=== PATIENT | female | born 1995 | race Caucasian/White ===

== ENCOUNTER 2016-03-23 14:57 | Emergency (ER) | payer OTHER ==
[~2016-03-23] VITALS: Ht 165.1 cm; Wt 115.7 kg
[~2016-03-23 14:57] MED LIST: ADDERALL XR25 MG PO; AMOXICILLIN500 M2 PO; AMOXICILLIN500 M3 PO; AMOXICILLIN500 MG PO; ATOXIMETIN-B1 CAP PO; CLINDAMYCIN HC300 MG PO; DICLEGIS DR 101 EACH PO; DOCUSATE SODIU100 MG PO; FE-TABS325 MG PO; FLEXERIL10 MG PO; HYDROCODONE BIT1 T11 PO; IBUPROFEN600 MG PO; IMPLANON68 MG ID; LORTAB 180 ML180 ML PO; MOTRIN 600 MG E4 TAB PO; MOTRIN800 MG PO; Motrin,Rufen800 MG PO; NAPROSYN500 MG PO; NKHM; PEN-VEE K500 MG PO; PENICILLIN VK500 MG PO; PERCOCET 325 MG1 TA2 PO; PRENATA CHEWAB1 EACH PO; PROAIR HFA0.09 MG/AC INH; Percocet 325 MG1 TAB PO; TAB-A-VITE W/IR1 TAB PO; TRAMADOL HCL50 MG PO; ULTRAM50 MG PO; ZOFRAN ODT4 MG SL; ZOFRAN4 MG PO; ZYRTEC10 MG PO; ZYRTEC5 MG PO; [UNRECOGNIZED DRUG - OTHER] PO
[2016-03-23 15:26] LABS: BASO # 0.1 10*3/uL (0.0-0.1); BASO % 0.4 % (0.0-1.0); EOS # 0.1 10*3/uL (0.0-0.4); EOS % 1.1 % (1.0-4.0); HEMATOCRIT 41.9 % (37.0-47.0); HEMOGLOBIN 13.5 g/dl (12.0-16.0); LYMPH # 1.4 10*3/uL (1.3-4.4); LYMPH % 12.9 % (27.0-41.0); MEAN CELL VOLUME 84.8 fl (81.0-99.0); MEAN CORPUSCULAR HGB 27.3 pg (27.0-31.0); MEAN CORPUSCULAR HGB CONC 32.2 g/dl (33.0-37.0); MEAN PLATELET VOLUME 9.5 fl (9.6-12.3); MONO # 0.8 10*3/uL (0.1-1.0); MONO % 7.4 % (3.0-9.0); NEUT # 8.7 10*3/uL (2.3-7.9); NEUT % 77.8 % (47.0-73.0); PLATELET COUNT AUTOMATED 360 10*3/uL (130-400); RED BLOOD COUNT 4.94 10*6/uL (4.10-5.10); RED CELL DISTRI WIDTH 12.7 % (0-14.5); WHITE BLOOD COUNT 11.2 10*3/uL (4.8-10.8)
[2016-03-23 15:51] LABS: ALBUMIN 3.7 gm/dl (3.1-4.5); ALKALINE PHOSPHATASE 73 U/L (45-117); BILIRUBIN, TOTAL 0.2 mg/dl (0.2-1.0); BUN 9 mg/dl (7-24); CARBON DIOXIDE 26 mmol/L (21-32); CHLORIDE 106 mmol/L (98-107); EST GLOM FILT AFRICAN AMERICAN > 60 ml/min; GLUCOSE 73 mg/dL (65-99); POTASSIUM 4.4 mmol/L (3.5-5.1); SGOT/AST 26 IU/L (3-35); SGPT/ALT 44 U/L (12-78); SODIUM 142 mmol/L (136-145); TOTAL PROTEIN 7.9 gm/dL (6.4-8.2)
[2016-03-23 15:58] LABS: BILIRUBIN NEGATIVE (NEGATIVE); BLOOD NEGATIVE (NEGATIVE); CLARITY SL CLOUDY (CLEAR); COLOR YELLOW (YELLOW); GLUCOSE NEGATIVE (NEGATIVE); KETONE NEGATIVE (NEGATIVE); LEUKO ESTERASE TRACE (NEGATIVE); NITRITE NEGATIVE (NEGATIVE); PROTEIN NEGATIVE (NEGATIVE); SPECIFIC GRAVITY 1.015 (1.005-1.030); UROBILINOGEN 0.2 E.U./dl (0.2-1.0)
[2016-03-23 16:10] LABS: BACTERIA 1+; URINE REFLEX COMMENT YES (NO)
[2016-03-23] MEDS ORDERED: ZOFRAN4 MG PO (16:12)
== END 2016-03-23 16:19 | disposition home or self-care (01) ==
LOC: ED 14:57
PROVIDERS: Nurse Practitioner Family
DX: K52.9 Noninfective gastroenteritis and colitis, unspecified (principal); R03.0 Elevated blood-pressure reading, without diagnosis of hypertension; G43.909 Migraine, unspecified, not intractable, without status migrainosus

== ENCOUNTER 2016-07-12 12:06 | Emergency (ER) | payer OTHER ==
[~2016-07-12] VITALS: Ht 165.1 cm; Wt 117.0 kg
[2016-07-12] MEDS ORDERED: LIPITOR10 MG PO (12:26)
[2016-07-12] MEDS ORDERED: Peridex 473 ML473 ML PO (12:43)
[2016-07-12] MEDS ORDERED: LIDOCAINE VISC100 ML MM (12:43)
[2016-07-12] MEDS ORDERED: PENICILLIN-VK500 MG PO (12:43)
[2016-07-12] MEDS ORDERED: Motrin,Rufen800 MG PO (12:43)
== END 2016-07-12 12:50 | disposition home or self-care (01) ==
LOC: ED 12:06
DX: K08.89 Other specified disorders of teeth and supporting structures (principal); Z90.89 Acquired absence of other organs; Z79.899 Other long term (current) drug therapy; Z91.018 Allergy to other foods

== ENCOUNTER 2016-07-22 18:20 | Emergency (ER) | payer OTHER ==
[~2016-07-22] VITALS: Ht 165.1 cm; Wt 117.9 kg
[~2016-07-22 18:20] MED LIST changes: +LIDOCAINE VISC100 ML MM; +LIPITOR10 MG PO; +PENICILLIN-VK500 MG PO; +Peridex 473 ML473 ML PO
[2016-07-22] MEDS ORDERED: LORAZEPAM0.5 MG PO (18:25)
[2016-07-22] MEDS ORDERED: NAPROSYN500 MG PO (18:34)
[2016-07-22] MEDS ORDERED: CIPRO500 MG PO (18:34)
== END 2016-07-22 18:39 | disposition home or self-care (01) ==
LOC: ED 18:20
DX: S91.332A Puncture wound without foreign body, left foot, initial encounter (principal); G43.909 Migraine, unspecified, not intractable, without status migrainosus; Z79.899 Other long term (current) drug therapy; Z90.49 Acquired absence of other specified parts of digestive tract; Z91.018 Allergy to other foods; W22.8XXA Striking against or struck by other objects, initial encounter; Y93.89 Activity, other specified; Y92.89 Other specified places as the place of occurrence of the external cause; Y99.9 Unspecified external cause status

== ENCOUNTER 2016-07-24 09:00 | Emergency (ER) | payer OTHER ==
[~2016-07-24] VITALS: Ht 165.1 cm; Wt 119.3 kg
[~2016-07-24 09:00] MED LIST changes: +CIPRO500 MG PO; +LORAZEPAM0.5 MG PO
== END 2016-07-24 10:06 | disposition home or self-care (01) ==
LOC: ED 09:00
DX: S91.332A Puncture wound without foreign body, left foot, initial encounter (principal); G43.909 Migraine, unspecified, not intractable, without status migrainosus; Z90.49 Acquired absence of other specified parts of digestive tract; Z79.899 Other long term (current) drug therapy; Z91.018 Allergy to other foods; W22.8XXA Striking against or struck by other objects, initial encounter; Y93.89 Activity, other specified; Y92.89 Other specified places as the place of occurrence of the external cause; Y99.9 Unspecified external cause status

== ENCOUNTER → 2016-08-25 | Outpatient (CLI) | payer OTHER ==
[2016-08-25 11:13] LABS: HEMOGLOBIN A1c 5.5 % (4.8-5.6)
[2016-08-25 11:24] LABS: THYROXINE (T4) TOTAL 9.3 ug/dl (4.8-13.9)
[2016-08-25 11:30] LABS: THYROID STIM HORMONE (HS) 0.965 uIU/ml (0.358-4.75)
[2016-08-25 13:27] LABS: FREE THYROXIN INDEX/T7 3.1 (1.5-5.4)
== END | disposition home or self-care (01) ==
LOC: LAB 10:27
PROVIDERS: Pediatrics
DX: R63.5 Abnormal weight gain (principal)

== ENCOUNTER 2016-09-29 18:56 | Emergency (ER) | payer OTHER ==
[~2016-09-29] VITALS: Ht 165.1 cm; Wt 108.4 kg
[2016-09-29 19:31] LABS: BASO % 0.5 % (0.0-1.0); EOS # 0.1 10*3/uL (0.0-0.4); EOS % 0.8 % (1.0-4.0); HEMATOCRIT 41.1 % (37.0-47.0); HEMOGLOBIN 13.4 g/dl (12.0-16.0); LYMPH # 1.4 10*3/uL (1.3-4.4); LYMPH % 15.9 % (27.0-41.0); MEAN CELL VOLUME 81.7 fl (81.0-99.0); MEAN CORPUSCULAR HGB 26.6 pg (27.0-31.0); MEAN CORPUSCULAR HGB CONC 32.6 g/dl (33.0-37.0); MEAN PLATELET VOLUME 9.5 fl (9.6-12.3); MONO # 0.7 10*3/uL (0.1-1.0); MONO % 7.8 % (3.0-9.0); NEUT # 6.3 10*3/uL (2.3-7.9); NEUT % 74.8 % (47.0-73.0); PLATELET COUNT AUTOMATED 309 10*3/uL (130-400); RED BLOOD COUNT 5.03 10*6/uL (4.10-5.10); RED CELL DISTRI WIDTH 13.4 % (0-14.5); WHITE BLOOD COUNT 8.5 10*3/uL (4.8-10.8)
[2016-09-29 19:34] LABS: BILIRUBIN NEGATIVE (NEGATIVE); BLOOD 2+ (NEGATIVE); CLARITY SL CLOUDY (CLEAR); COLOR YELLOW (YELLOW); GLUCOSE NEGATIVE (NEGATIVE); KETONE NEGATIVE (NEGATIVE); LEUKO ESTERASE NEGATIVE (NEGATIVE); NITRITE NEGATIVE (NEGATIVE); PH 5.5 (5.0-9.0); PROTEIN TRACE (NEGATIVE); SPECIFIC GRAVITY >= 1.030 (1.005-1.030); UROBILINOGEN 0.2 E.U./dl (0.2-1.0)
[2016-09-29 19:39] LABS: BACTERIA 4+; URINE REFLEX COMMENT YES (NO)
[2016-09-29 19:47] LABS: ALBUMIN 3.7 gm/dl (3.1-4.5); ALKALINE PHOSPHATASE 75 U/L (45-117); BILIRUBIN, TOTAL 0.3 mg/dl (0.2-1.0); BUN 9 mg/dl (7-24); CARBON DIOXIDE 23 mmol/L (21-32); CHLORIDE 104 mmol/L (98-107); EST GLOM FILT AFRICAN AMERICAN > 60 ml/min; GLUCOSE 93 mg/dL (65-99); POTASSIUM 3.9 mmol/L (3.5-5.1); SGOT/AST 30 IU/L (3-35); SGPT/ALT 30 U/L (12-78); SODIUM 138 mmol/L (136-145); TOTAL PROTEIN 7.9 gm/dL (6.4-8.2)
[2016-09-29] MEDS ORDERED: ZOFRAN ODT4 MG SL (20:04)
== END 2016-09-29 20:33 | disposition home or self-care (01) ==
LOC: ED 18:56
PROVIDERS: Nurse Practitioner Family
DX: A08.4 Viral intestinal infection, unspecified (principal); G43.909 Migraine, unspecified, not intractable, without status migrainosus; Z91.018 Allergy to other foods; Z79.899 Other long term (current) drug therapy

== ENCOUNTER 2016-10-28 16:07 | Emergency (ER) | payer OTHER ==
[~2016-10-28] VITALS: Ht 165.1 cm; Wt 114.8 kg
[2016-10-28] MEDS ORDERED: PREDNISONE10 MG PO (16:18)
== END 2016-10-28 16:24 | disposition home or self-care (01) ==
LOC: ED 16:07
DX: L30.9 Dermatitis, unspecified (principal); G43.909 Migraine, unspecified, not intractable, without status migrainosus; Z90.89 Acquired absence of other organs; Z79.899 Other long term (current) drug therapy; Z91.018 Allergy to other foods

== ENCOUNTER → 2017-02-07 | Outpatient (CLI) | payer MEDICAID ==
[~2017-02-07] MED LIST changes: +PREDNISONE10 MG PO
== END | disposition home or self-care (01) ==
LOC: LAB 11:39
DX: N91.2 Amenorrhea, unspecified (principal)

== ENCOUNTER 2017-04-15 11:28 | Emergency (ER) | payer OTHER ==
[2017-04-15] MEDS ORDERED: DAILY VITE WIT1 EACH PO (11:39)
[2017-04-15] MEDS ORDERED: IBU800 M1 PO (11:44)
[2017-04-15] MEDS ORDERED: AMOXICILLIN500 M3 PO (12:16)
[2017-04-15] MEDS ORDERED: NORCO 5-325 TA1 EACH PO (12:16)
[2017-04-15] MEDS ORDERED: IBUPROFEN600 MG PO (12:16)
== END 2017-04-15 13:09 | disposition home or self-care (01) ==
LOC: ED 11:28
DX: K08.89 Other specified disorders of teeth and supporting structures (principal); Z90.89 Acquired absence of other organs; Z79.899 Other long term (current) drug therapy; Z91.018 Allergy to other foods

== ENCOUNTER 2017-04-21 22:08 | Emergency (ER) | payer OTHER ==
[~2017-04-21] VITALS: Ht 165.1 cm; Wt 114.3 kg
[~2017-04-21 22:08] MED LIST changes: +DAILY VITE WIT1 EACH PO; +IBU800 M1 PO; +NORCO 5-325 TA1 EACH PO
[2017-04-21 22:56] LABS: BILIRUBIN 1+ (NEGATIVE); BLOOD 1+ (NEGATIVE); CLARITY SL CLOUDY (CLEAR); GLUCOSE NEGATIVE (NEGATIVE); KETONE TRACE (NEGATIVE); LEUKO ESTERASE NEGATIVE (NEGATIVE); NITRITE NEGATIVE (NEGATIVE); PH 5.5 (5.0-9.0); SPECIFIC GRAVITY >= 1.030 (1.005-1.030); UROBILINOGEN 0.2 E.U./dl (0.2-1.0)
[2017-04-21 22:56] LABS: BASO % 0.6 % (0.0-1.0); EOS # 0.3 10*3/uL (0.0-0.4); EOS % 3.9 % (1.0-4.0); HEMATOCRIT 36.7 % (37.0-47.0); HEMOGLOBIN 12.1 g/dl (12.0-16.0); LYMPH # 1.6 10*3/uL (1.3-4.4); LYMPH % 22.7 % (27.0-41.0); MEAN CELL VOLUME 83.6 fl (81.0-99.0); MEAN CORPUSCULAR HGB 27.6 pg (27.0-31.0); MEAN PLATELET VOLUME 9.7 fl (9.6-12.3); MONO # 0.7 10*3/uL (0.1-1.0); MONO % 9.5 % (3.0-9.0); NEUT # 4.6 10*3/uL (2.3-7.9); PLATELET COUNT AUTOMATED 304 10*3/uL (130-400); RED BLOOD COUNT 4.39 10*6/uL (4.10-5.10); WHITE BLOOD COUNT 7.2 10*3/uL (4.8-10.8)
[2017-04-21 23:04] LABS: BACTERIA 3+; CALCIUM OXALATE CRYSTALS 2+; COLOR YELLOW (YELLOW); EPITHELIAL CELLS 25-30
[2017-04-21 23:11] LABS: ALBUMIN 3.6 gm/dl (3.1-4.5); ALKALINE PHOSPHATASE 69 U/L (45-117); BUN 13 mg/dl (7-24); CHLORIDE 107 mmol/L (98-107); CREATININE 0.74 mg/dL (0.55-1.02); LIPASE 135 U/L (73-393); POTASSIUM 3.7 mmol/L (3.5-5.1); SGOT/AST 19 IU/L (3-35); SGPT/ALT 27 U/L (12-78); SODIUM 140 mmol/L (136-145); TOTAL PROTEIN 7.2 gm/dL (6.4-8.2)
[2017-04-21] MEDS ORDERED: ZANTAC 150150 MG PO (23:35)
== END 2017-04-21 23:45 | disposition home or self-care (01) ==
LOC: ED 22:08
PROVIDERS: Nurse Practitioner Family
DX: K21.9 Gastro-esophageal reflux disease without esophagitis (principal); Z90.49 Acquired absence of other specified parts of digestive tract; Z98.890 Other specified postprocedural states; Z79.899 Other long term (current) drug therapy; Z91.018 Allergy to other foods

== ENCOUNTER 2017-05-13 12:29 | Emergency (ER) | payer OTHER ==
[~2017-05-13] VITALS: Ht 165.1 cm; Wt 95.3 kg
[~2017-05-13 12:29] MED LIST changes: +ZANTAC 150150 MG PO
[2017-05-13] MEDS ORDERED: CLINDAMYCIN HC300 MG PO (12:55)
[2017-05-13] MEDS ORDERED: IBU800 MG PO (12:56)
== END 2017-05-13 13:15 | disposition home or self-care (01) ==
LOC: ED 12:29
DX: K08.89 Other specified disorders of teeth and supporting structures (principal); Z91.018 Allergy to other foods; Z79.899 Other long term (current) drug therapy; Z90.89 Acquired absence of other organs

== ENCOUNTER 2017-06-08 13:40 | Emergency (ER) | payer OTHER ==
[~2017-06-08] VITALS: Ht 165.1 cm; Wt 114.8 kg
[~2017-06-08 13:40] MED LIST changes: +IBU800 MG PO
[2017-06-08] MEDS ORDERED: OMNICEF300 MG PO (14:22)
== END 2017-06-08 14:25 | disposition home or self-care (01) ==
LOC: ED 13:40
DX: J32.9 Chronic sinusitis, unspecified (principal); J02.9 Acute pharyngitis, unspecified; K21.9 Gastro-esophageal reflux disease without esophagitis; Z91.018 Allergy to other foods

== ENCOUNTER → 2017-09-07 | Outpatient (CLI) | payer OTHER ==
[~2017-09-07] MED LIST changes: +CHLORZOXAZONE500 M2 PO; +OMNICEF300 MG PO
[2017-09-07 12:40] LABS: CHOLESTEROL 206 mg/dL (<200); HDL CHOLESTEROL 43 mg/dl (40-60); LDL CHOLESTEROL 129 mg/dL (9-159); T3 UPTAKE 32 % (31-39); THYROXINE (T4) TOTAL 9.8 ug/dl (4.8-13.9); TRIGLYCERIDES 168 mg/dl (<150); VLDL CHOLESTEROL 34 mg/dL (6-40)
[2017-09-07 12:46] LABS: BETA-HCG, QUANT < 1.0 mIU/mL (1-3)
== END | disposition home or self-care (01) ==
LOC: LAB 12:02
PROVIDERS: Pediatrics
DX: N92.6 Irregular menstruation, unspecified (principal); R63.5 Abnormal weight gain; Z79.899 Other long term (current) drug therapy

== ENCOUNTER 2017-09-21 11:39 | Emergency (ER) | payer OTHER ==
[~2017-09-21] VITALS: Ht 165.1 cm; Wt 104.3 kg
[~2017-09-21 11:39] MED LIST changes: -CHLORZOXAZONE500 M2 PO
[2017-09-21] MEDS ORDERED: NAPROSYN500 MG PO (12:02)
[2017-09-21] MEDS ORDERED: CHLORZOXAZONE500 M2 PO (12:02)
== END 2017-09-21 13:08 | disposition home or self-care (01) ==
LOC: ED 11:39
DX: S09.90XA Unspecified injury of head, initial encounter (principal); M54.5 Low back pain; K21.9 Gastro-esophageal reflux disease without esophagitis; G43.909 Migraine, unspecified, not intractable, without status migrainosus; Z91.018 Allergy to other foods; Z79.899 Other long term (current) drug therapy; V89.2XXA Person injured in unspecified motor-vehicle accident, traffic, initial encounter; Y93.89 Activity, other specified; Y92.413 State road as the place of occurrence of the external cause; Y99.8 Other external cause status

== ENCOUNTER 2017-12-14 07:36 | Emergency (ER) | payer OTHER ==
[~2017-12-14] VITALS: Wt 101.2 kg
[~2017-12-14 07:36] MED LIST changes: +CHLORZOXAZONE500 M2 PO
[2017-12-14 08:00] LABS: BASO % 0.4 % (0.0-1.0); EOS # 0.5 10*3/uL (0.0-0.4); EOS % 7.4 % (1.0-4.0); HEMOGLOBIN 12.9 g/dl (12.0-16.0); LYMPH # 1.8 10*3/uL (1.3-4.4); LYMPH % 25.7 % (27.0-41.0); MEAN CELL VOLUME 84.1 fl (81.0-99.0); MEAN CORPUSCULAR HGB 28.5 pg (27.0-31.0); MEAN CORPUSCULAR HGB CONC 33.9 g/dl (33.0-37.0); MEAN PLATELET VOLUME 9.8 fl (9.6-12.3); MONO # 0.7 10*3/uL (0.1-1.0); MONO % 10.1 % (3.0-9.0); NEUT # 3.9 10*3/uL (2.3-7.9); NEUT % 56.1 % (47.0-73.0); PLATELET COUNT AUTOMATED 285 10*3/uL (130-400); RED BLOOD COUNT 4.52 10*6/uL (4.10-5.10); RED CELL DISTRI WIDTH 12.9 % (0-14.5); WHITE BLOOD COUNT 6.9 10*3/uL (4.8-10.8)
[2017-12-14 08:13] LABS: ALBUMIN 3.9 gm/dl (3.1-4.5); ALKALINE PHOSPHATASE 57 U/L (45-117); BUN 11 mg/dl (7-24); CHLORIDE 108 mmol/L (98-107); CREATININE 0.78 mg/dL (0.55-1.02); LIPASE 181 U/L (73-393); POTASSIUM 3.3 mmol/L (3.5-5.1); SGOT/AST 19 IU/L (3-35); SGPT/ALT 24 U/L (12-78); SODIUM 141 mmol/L (136-145); TOTAL PROTEIN 7.5 gm/dL (6.4-8.2)
[2017-12-14 08:38] LABS: BILIRUBIN NEGATIVE (NEGATIVE); BLOOD 3+ (NEGATIVE); CLARITY CLOUDY (CLEAR); COLOR YELLOW (YELLOW); GLUCOSE NEGATIVE (NEGATIVE); KETONE NEGATIVE (NEGATIVE); NITRITE NEGATIVE (NEGATIVE); UROBILINOGEN 0.2 E.U./dl (0.2-1.0)
[2017-12-14 08:39] LABS: BACTERIA 1+; LEUKO ESTERASE NEGATIVE (NEGATIVE)
[2017-12-14] MEDS ORDERED: PEPCID20 MG PO (11:41)
== END 2017-12-14 12:00 | disposition home or self-care (01) ==
LOC: ED 07:36
PROVIDERS: Emergency Medicine
DX: R10.13 Epigastric pain (principal); R10.11 Right upper quadrant pain; K21.9 Gastro-esophageal reflux disease without esophagitis; G43.909 Migraine, unspecified, not intractable, without status migrainosus; E66.01 Morbid (severe) obesity due to excess calories; Z90.89 Acquired absence of other organs; Z91.018 Allergy to other foods; Z79.899 Other long term (current) drug therapy

== ENCOUNTER 2018-03-17 20:56 | Emergency (ER) | payer OTHER ==
[~2018-03-17] VITALS: Ht 165.1 cm; Wt 99.8 kg
[~2018-03-17 20:56] MED LIST changes: +PEPCID20 MG PO
== END 2018-03-17 21:41 | disposition home or self-care (01) ==
LOC: ED 20:56
DX: F41.9 Anxiety disorder, unspecified (principal); R51 Headache; R42 Dizziness and giddiness; H53.9 Unspecified visual disturbance; Z91.018 Allergy to other foods; Z79.899 Other long term (current) drug therapy

== ENCOUNTER 2018-08-05 15:59 | Emergency (ER) | payer OTHER ==
[~2018-08-05] VITALS: Ht 165.1 cm; Wt 97.5 kg
[2018-08-05] MEDS ORDERED: Motrin,Rufen800 MG PO (19:44)
== END 2018-08-05 20:00 | disposition home or self-care (01) ==
LOC: ED 15:59
DX: S22.31XA Fracture of one rib, right side, initial encounter for closed fracture (principal); S01.311A Laceration without foreign body of right ear, initial encounter; M79.621 Pain in right upper arm; R51 Headache; Z91.018 Allergy to other foods; Z79.899 Other long term (current) drug therapy; Z79.2 Long term (current) use of antibiotics; V49.49XA Driver injured in collision with other motor vehicles in traffic accident, initial encounter; Y93.I9 Activity, other involving external motion; Y92.488 Other paved roadways as the place of occurrence of the external cause; Y99.8 Other external cause status

== ENCOUNTER 2018-10-23 22:00 | Emergency (ER) | payer OTHER ==
[~2018-10-23] VITALS: Wt 97.5 kg
[2018-10-23] MEDS ORDERED: PRENATAL VITAM1 EAC4 PO (22:21)
== END 2018-10-23 23:54 | disposition home or self-care (01) ==
LOC: ED 22:00
DX: N91.1 Secondary amenorrhea (principal); Z32.01 Encounter for pregnancy test, result positive; Z91.018 Allergy to other foods; Z79.2 Long term (current) use of antibiotics; Z79.899 Other long term (current) drug therapy

== ENCOUNTER 2018-10-27 18:09 | Emergency (ER) | payer OTHER ==
[~2018-10-27] VITALS: Ht 165.1 cm; Wt 97.5 kg
[~2018-10-27 18:09] MED LIST changes: +PRENATAL VITAM1 EAC4 PO
[2018-10-27 19:10] LABS: BILIRUBIN NEGATIVE (NEGATIVE); BLOOD NEGATIVE (NEGATIVE); CLARITY CLEAR (CLEAR); COLOR YELLOW (YELLOW); GLUCOSE NEGATIVE (NEGATIVE); KETONE NEGATIVE (NEGATIVE); LEUKO ESTERASE TRACE (NEGATIVE); NITRITE NEGATIVE (NEGATIVE); SPECIFIC GRAVITY 1.025 (1.005-1.030); UROBILINOGEN 0.2 E.U./dl (0.2-1.0)
[2018-10-27 19:20] LABS: BACTERIA 2+; EPITHELIAL CELLS 41-50
[2018-10-27] MEDS ORDERED: CEPHALEXIN500 M1 PO (19:26)
[2018-10-27 19:31] LABS: BASO # 0.1 10*3/uL (0.0-0.1); BASO % 0.6 % (0.0-1.0); EOS # 0.1 10*3/uL (0.0-0.4); EOS % 1.6 % (1.0-4.0); HEMATOCRIT 38.9 % (37.0-47.0); HEMOGLOBIN 12.8 g/dl (12.0-16.0); LYMPH # 2.6 10*3/uL (1.3-4.4); LYMPH % 29.4 % (27.0-41.0); MEAN CELL VOLUME 85.1 fl (81.0-99.0); MEAN CORPUSCULAR HGB CONC 32.9 g/dl (33.0-37.0); MEAN PLATELET VOLUME 10.1 fl (9.6-12.3); MONO # 0.7 10*3/uL (0.1-1.0); MONO % 7.6 % (3.0-9.0); NEUT # 5.3 10*3/uL (2.3-7.9); NEUT % 60.6 % (47.0-73.0); PLATELET COUNT AUTOMATED 316 10*3/uL (130-400); RED BLOOD COUNT 4.57 10*6/uL (4.10-5.10); RED CELL DISTRI WIDTH 12.6 % (0-14.5); WHITE BLOOD COUNT 8.8 10*3/uL (4.8-10.8)
[2018-10-27 19:42] LABS: ALBUMIN 3.5 gm/dl (3.1-4.5); ALKALINE PHOSPHATASE 58 U/L (45-117); BUN 8 mg/dl (7-24); CHLORIDE 106 mmol/L (98-107); CREATININE 0.64 mg/dL (0.55-1.02); POTASSIUM 4.1 mmol/L (3.5-5.1); SGOT/AST 13 IU/L (3-35); SGPT/ALT 21 U/L (12-78); SODIUM 138 mmol/L (136-145); TOTAL PROTEIN 6.9 gm/dL (6.4-8.2)
== END 2018-10-27 22:57 | disposition left against medical advice (07) ==
LOC: ED 18:09
PROVIDERS: Physician Assistant
DX: O26.891 Other specified pregnancy related conditions, first trimester (principal); R35.0 Frequency of micturition; R39.15 Urgency of urination; Z3A.01 Less than 8 weeks gestation of pregnancy; Z79.899 Other long term (current) drug therapy; Z91.018 Allergy to other foods

== ENCOUNTER → 2019-02-11 | Outpatient (CLI) | payer OTHER ==
[~2019-02-11] MED LIST changes: +CEPHALEXIN500 M1 PO
== END | disposition home or self-care (01) ==
LOC: US 01-29 12:30
DX: Z34.82 Encounter for supervision of other normal pregnancy, second trimester (principal); Z3A.16 16 weeks gestation of pregnancy

== ENCOUNTER → 2019-03-04 | Outpatient (CLI) | payer OTHER | END | disposition home or self-care (01) | LOC: US 16:00 | DX: Z34.82 Encounter for supervision of other normal pregnancy, second trimester (principal); Z3A.25 25 weeks gestation of pregnancy ==

== ENCOUNTER 2019-03-06 17:25 | Emergency (ER) | payer OTHER ==
[~2019-03-06] VITALS: Wt 105.2 kg
[2019-03-06 18:24] LABS: BASO % 0.4 % (0.0-1.0); EOS # 0.1 10*3/uL (0.0-0.4); EOS % 0.7 % (1.0-4.0); HEMATOCRIT 33.6 % (37.0-47.0); HEMOGLOBIN 11.2 g/dl (12.0-16.0); LYMPH # 0.6 10*3/uL (1.3-4.4); LYMPH % 5.8 % (27.0-41.0); MEAN CORPUSCULAR HGB CONC 33.3 g/dl (33.0-37.0); MONO # 0.6 10*3/uL (0.1-1.0); MONO % 5.1 % (3.0-9.0); NEUT # 9.5 10*3/uL (2.3-7.9); NEUT % 87.7 % (47.0-73.0); PLATELET COUNT AUTOMATED 258 10*3/uL (130-400); RED CELL DISTRI WIDTH 12.8 % (0-14.5); WHITE BLOOD COUNT 10.9 10*3/uL (4.8-10.8)
[2019-03-06 18:39] LABS: ALBUMIN 2.7 gm/dl (3.1-4.5); ALKALINE PHOSPHATASE 64 U/L (45-117); BUN 3 mg/dl (7-24); CHLORIDE 108 mmol/L (98-107); CREATININE 0.57 mg/dL (0.55-1.02); POTASSIUM 3.5 mmol/L (3.5-5.1); SGOT/AST 13 IU/L (3-35); SGPT/ALT 18 U/L (12-78); SODIUM 139 mmol/L (136-145); TOTAL PROTEIN 6.7 gm/dL (6.4-8.2)
[2019-03-06 19:53] LABS: BILIRUBIN NEGATIVE (NEGATIVE); BLOOD NEGATIVE (NEGATIVE); CLARITY SL CLOUDY (CLEAR); COLOR YELLOW (YELLOW); GLUCOSE NEGATIVE (NEGATIVE); KETONE TRACE (NEGATIVE); LEUKO ESTERASE NEGATIVE (NEGATIVE); NITRITE NEGATIVE (NEGATIVE); UROBILINOGEN 0.2 E.U./dl (0.2-1.0)
[2019-03-06 19:54] LABS: BACTERIA TRACE; EPITHELIAL CELLS 21-30
[2019-03-06] MEDS ORDERED: AMOXICILLIN500 M2 PO (21:30)
== END 2019-03-06 21:47 | disposition home or self-care (01) ==
LOC: ED 17:25
PROVIDERS: Emergency Medicine
DX: O99.512 Diseases of the respiratory system complicating pregnancy, second trimester (principal); J01.40 Acute pansinusitis, unspecified; R11.10 Vomiting, unspecified; O99.352 Diseases of the nervous system complicating pregnancy, second trimester; G43.909 Migraine, unspecified, not intractable, without status migrainosus; O99.612 Diseases of the digestive system complicating pregnancy, second trimester; K21.9 Gastro-esophageal reflux disease without esophagitis; O10.912 Unspecified pre-existing hypertension complicating pregnancy, second trimester; Z3A.25 25 weeks gestation of pregnancy; Z91.018 Allergy to other foods; Z79.899 Other long term (current) drug therapy; Z79.2 Long term (current) use of antibiotics

== ENCOUNTER → 2019-03-28 | Outpatient (CLI) | payer OTHER | END | disposition home or self-care (01) | LOC: US 10:58 | DX: Z34.02 Encounter for supervision of normal first pregnancy, second trimester (principal); Z3A.27 27 weeks gestation of pregnancy ==

== ENCOUNTER → 2019-04-28 | Outpatient (CLI) | payer OTHER | END | disposition home or self-care (01) | LOC: US 16:00 | DX: Z34.83 Encounter for supervision of other normal pregnancy, third trimester (principal); Z3A.32 32 weeks gestation of pregnancy ==

== ENCOUNTER → 2020-05-31 | Outpatient (CLI) | payer OTHER | END | disposition home or self-care (01) | LOC: US 05-24 11:00 | PROVIDERS: ATTEND Nurse Practitioner Women's Health | DX: Z34.82 Encounter for supervision of other normal pregnancy, second trimester (principal); Z3A.21 21 weeks gestation of pregnancy ==

== ENCOUNTER → 2020-06-09 | Outpatient (CLI) | payer OTHER | END | disposition home or self-care (01) | LOC: LAB 14:14 | PROVIDERS: ATTEND Nurse Practitioner Women's Health | DX: O09.299 Supervision of pregnancy with other poor reproductive or obstetric history, unspecified trimester (principal); Z3A.15 15 weeks gestation of pregnancy ==

== ENCOUNTER → 2020-06-24 | Outpatient (CLI) | payer OTHER | END | disposition home or self-care (01) | LOC: US 09:30 | PROVIDERS: ATTEND Obstetrics & Gynecology | DX: Z34.02 Encounter for supervision of normal first pregnancy, second trimester (principal); Z3A.22 22 weeks gestation of pregnancy ==

== ENCOUNTER → 2020-08-06 | Outpatient (CLI) | payer OTHER | END | disposition home or self-care (01) | LOC: LAB 08:12 → US 08:12 | PROVIDERS: ATTEND Emergency Medicine | DX: Z34.83 Encounter for supervision of other normal pregnancy, third trimester (principal); Z3A.28 28 weeks gestation of pregnancy ==

== ENCOUNTER → 2020-08-12 | Outpatient (CLI) | payer OTHER | END | disposition home or self-care (01) | LOC: US 15:05 | PROVIDERS: ATTEND Nurse Practitioner Women's Health | DX: O36.60X3 Maternal care for excessive fetal growth, unspecified trimester, fetus 3 (principal); Z3A.32 32 weeks gestation of pregnancy ==

== ENCOUNTER → 2020-09-01 | Outpatient (CLI) | payer OTHER | END | disposition home or self-care (01) | LOC: US 15:00 | PROVIDERS: ATTEND Obstetrics & Gynecology | DX: Z34.83 Encounter for supervision of other normal pregnancy, third trimester (principal); Z3A.37 37 weeks gestation of pregnancy ==

== ENCOUNTER → 2020-09-15 | Outpatient (CLI) | payer OTHER | END | disposition home or self-care (01) | LOC: US 13:30 | PROVIDERS: ATTEND Nurse Practitioner Women's Health | DX: O24.410 Gestational diabetes mellitus in pregnancy, diet controlled (principal); Z3A.37 37 weeks gestation of pregnancy ==

== ENCOUNTER 2022-04-29 20:01 | Emergency (ER) | payer OTHER ==
[~2022-04-29] VITALS: Ht 165.1 cm; Wt 117.9 kg
[2022-04-29] MEDS ORDERED: AMOX-CLAV 875-1 EACH PO (20:20)
== END 2022-04-29 20:21 | disposition home or self-care (01) ==
LOC: ED 20:01
DX: H66.91 Otitis media, unspecified, right ear (principal); Z91.018 Allergy to other foods; Z90.89 Acquired absence of other organs; Z98.890 Other specified postprocedural states

== ENCOUNTER 2022-09-13 21:08 | Emergency (ER) | payer OTHER ==
[~2022-09-13] VITALS: Ht 165.1 cm; Wt 117.0 kg
[~2022-09-13 21:08] MED LIST changes: +AMOX-CLAV 875-1 EACH PO
[2022-09-13] MEDS ORDERED: ATIVAN0.5 MG PO (21:53)
[2022-09-13] MEDS ORDERED: NAPROSYN500 MG PO (21:59)
== END 2022-09-13 22:21 | disposition home or self-care (01) ==
LOC: ED 21:08
DX: M94.0 Chondrocostal junction syndrome [Tietze] (principal); G43.909 Migraine, unspecified, not intractable, without status migrainosus; Z88.8 Allergy status to other drugs, medicaments and biological substances; D64.9 Anemia, unspecified; Z91.013 Allergy to seafood; Z90.89 Acquired absence of other organs; Z98.890 Other specified postprocedural states

== ENCOUNTER 2023-04-18 21:35 | Emergency (ER) | payer OTHER ==
[~2023-04-18] VITALS: Ht 165.1 cm; Wt 115.7 kg
[~2023-04-18 21:35] MED LIST changes: +ATIVAN0.5 MG PO
[2023-04-18 22:16] LABS: BILIRUBIN Negative (Negative); BLOOD Negative (Negative); CLARITY Clear (Clear); COLOR Yellow (Yellow); GLUCOSE Negative (Negative); KETONE Trace (Negative); LEUKO ESTERASE Negative (Negative); NITRITE Negative (Negative); SPECIFIC GRAVITY >= 1.030 (1.001-1.030); UROBILINOGEN 0.2 E.U./dl (0.0-1.0)
[2023-04-18 22:20] LABS: BASO # 0.1 10*3/uL (0.0-0.1); BASO % 0.6 % (0.0-1.0); EOS # 0.2 10*3/uL (0.0-0.4); EOS % 1.9 % (1.0-4.0); HEMATOCRIT 39.9 % (37.0-47.0); LYMPH # 2.8 10*3/uL (1.3-4.4); LYMPH % 29.5 % (27.0-41.0); MEAN CORPUSCULAR HGB 27.2 pg (27.0-31.0); MEAN CORPUSCULAR HGB CONC 32.3 g/dl (33.0-37.0); MEAN PLATELET VOLUME 9.3 fl (9.6-12.3); MONO # 0.7 10*3/uL (0.1-1.0); NEUT # 5.7 10*3/uL (2.3-7.9); NEUT % 60.8 % (47.0-73.0); PLATELET COUNT AUTOMATED 307 10*3/uL (130-400); RED BLOOD COUNT 4.75 10*6/uL (4.10-5.10); RED CELL DISTRI WIDTH 12.7 % (0-14.5); WHITE BLOOD COUNT 9.4 10*3/uL (4.8-10.8)
[2023-04-18 22:32] LABS: BACTERIA 1+
[2023-04-18 22:41] LABS: ACT PARTIAL THROMBO TIME 26.9 SECONDS (20.0-32.1)
[2023-04-18 22:46] LABS: ALKALINE PHOSPHATASE 61 U/L (46-116); BUN 9 mg/dl (9-23); CHLORIDE 106 mmol/L (98-107); LIPASE 36 U/L (12-53); POTASSIUM 3.6 mmol/L (3.4-5.1); SGPT/ALT 15 U/L (5-49); TOTAL PROTEIN 7.2 gm/dL (6.0-8.0)
== END 2023-04-19 00:23 | disposition short-term general hospital (02) ==
LOC: ED 21:35
PROVIDERS: Nurse Practitioner Family
DX: O26.899 Other specified pregnancy related conditions, unspecified trimester (principal); K21.9 Gastro-esophageal reflux disease without esophagitis; G43.909 Migraine, unspecified, not intractable, without status migrainosus; D64.9 Anemia, unspecified; R10.2 Pelvic and perineal pain; R11.0 Nausea; Z3A.00 Weeks of gestation of pregnancy not specified; Z91.018 Allergy to other foods; Z90.89 Acquired absence of other organs; Z98.890 Other specified postprocedural states

== ENCOUNTER 2024-03-09 13:56 | Emergency (ER) | payer SELFPAY ==
[~2024-03-09] VITALS: Ht 165.1 cm; Wt 116.6 kg
[2024-03-09] MEDS ORDERED: AMOX-CLAV 875-1 EACH PO (14:56)
[2024-03-09] MEDS ORDERED: Motrin,Rufen800 MG PO (14:57)
[2024-03-09] MEDS ORDERED: Amoxicillin/Clavulanate Pota 875 MG TAB PO ONE (15:00)
== END 2024-03-09 15:15 | disposition home or self-care (01) ==
LOC: ED 13:56
DX: H66.92 Otitis media, unspecified, left ear (principal); K08.89 Other specified disorders of teeth and supporting structures; F41.9 Anxiety disorder, unspecified; K21.9 Gastro-esophageal reflux disease without esophagitis; D64.9 Anemia, unspecified; G43.909 Migraine, unspecified, not intractable, without status migrainosus; Z91.018 Allergy to other foods; Z90.89 Acquired absence of other organs; Z98.890 Other specified postprocedural states

== ENCOUNTER 2024-12-01 08:17 | Emergency (ER) | payer OTHER ==
[~2024-12-01] VITALS: Ht 165.1 cm; Wt 114.8 kg
[2024-12-01] MEDS ORDERED: ZEPBOUND2.5 MG/0.5 SQ (08:34)
[2024-12-01] MEDS ORDERED: GUAIFENESIN AC473 M1 PO (08:48)
[2024-12-01] MEDS ORDERED: OCUFLOX 0.3% 5 M5 ML OT (08:48)
[2024-12-01] MEDS ORDERED: AMOXICILLIN500 M2 PO (08:48)
== END 2024-12-01 09:17 | disposition home or self-care (01) ==
LOC: ED 08:17
DX: H66.91 Otitis media, unspecified, right ear (principal); J06.9 Acute upper respiratory infection, unspecified; R05.9 Cough, unspecified; H60.91 Unspecified otitis externa, right ear; G43.909 Migraine, unspecified, not intractable, without status migrainosus; Z90.89 Acquired absence of other organs; Z91.018 Allergy to other foods